=== PATIENT | female | born 1995 ===

== ENCOUNTER 2016-12-16 18:48 | Emergency (ER) | payer MEDICAID ==
[2016-12-16] MEDS ORDERED: Silver Sulfadiazine 1% Crm 50 GM Tube TOP ONE (19:08)
[2016-12-16] MEDS ORDERED: Take Home: Acetaminophen/Codeine 300 MG/30 MG, 5 Tab Pack PO ONE (19:33)
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
== END 2016-12-16 19:54 | disposition home or self-care (01) ==
LOC: VM.ED 18:48
DX: O9A.212 Injury, poisoning and certain other consequences of external causes complicating pregnancy, second trimester (principal); T23.202A Burn of second degree of left hand, unspecified site, initial encounter; T21.21XA Burn of second degree of chest wall, initial encounter; T22.232A Burn of second degree of left upper arm, initial encounter; T22.231A Burn of second degree of right upper arm, initial encounter; T22.211A Burn of second degree of right forearm, initial encounter; Z88.1 Allergy status to other antibiotic agents; Z88.8 Allergy status to other drugs, medicaments and biological substances; X15.3XXA Contact with hot saucepan or skillet, initial encounter
CPT/HCPCS: 16020; 99283; A9270